=== PATIENT | male | born 1970 | race Caucasian/White ===

== ENCOUNTER 2025-04-21 12:31 | Emergency (ER) | payer SELFPAY | END 2025-04-21 13:55 | disposition home or self-care (01) | LOC: NAV ERS 12:31 | DX: N50.3 Cyst of epididymis (principal); I10 Essential (primary) hypertension; F17.210 Nicotine dependence, cigarettes, uncomplicated; Z79.899 Other long term (current) drug therapy | CPT/HCPCS: 96372; 99283; J1885 ==